=== PATIENT | male | born 1950 | race Caucasian/White ===

== ENCOUNTER 2019-08-07 19:43 | Inpatient (IN) | payer OTHER, BC ==
[~2019-08-07] VITALS: Ht 182.9 cm; Wt 95.3 kg
[~2019-08-07 19:43] MED LIST: ADVIL200 M3 PO; BENADRYL25 MG PO; BUPRENORPHINE HC8 MG SUBLING; FLOMAX0.4 MG PO; LIPITOR 10 MG10 M1 PO; LISINOPRIL20 MG PO; LORAZEPAM 0.50.5 MG PO; MULTIVITAMINS PO; NORVASC5 M1 PO; TERBINAFINE HC250 MG PO; TESTONE CI200 MG/1 M IM; VITAMIN D350 MC1 PO
[2019-08-09 11:13] LABS: HEMATOCRIT 51.8 % (42.0-52.0); HEMOGLOBIN 17.1 gm/dL (14.0-18.0); MCH 30.9 pg (26.0-34.0); MCHC 33.1 g/dL (28.0-37.0); MCV 93.6 fL (80.0-100.0); RBC 5.53 mil/uL (4.50-6.00); RDW 14.5 % (10.5-14.5); WBC 9.6 thou/uL (4.0-11.0)
[2019-08-09 11:17] LABS: PROTIME 10.7 Seconds (9.3-11.4)
[2019-08-09 11:19] LABS: ALBUMIN 4.3 g/dL (3.4-5.0); CALCIUM 9.6 mg/dL (8.5-10.1); CREATININE 1.1 mg/dL (0.7-1.3); POTASSIUM 4.1 mmol/L (3.5-5.1)
[2019-08-09 11:35] LABS: URINE BLOOD NEGATIVE (Negative); URINE CLARITY CLEAR; URINE COLOR YELLOW; URINE GLUCOSE-RANDOM* NEGATIVE (Negative); URINE KETONES TRACE (Negative); URINE LEUKOCYTES-REFLEX TRACE (Negative); URINE NITRITE-REFLEX NEGATIVE (Negative); URINE PROTEIN (DIPSTICK) NEGATIVE (Negative); URINE SPECIFIC GRAVITY >= 1.030 (1.005-1.035); URINE UROBILINOGEN 0.2 E.U./dl (0.2-1.0)
[2019-08-09 11:38] LABS: ICTOTEST (BILI CONFIRMATORY) Negative (Negative); URINE BILIRUBIN NEGATIVE (Negative)
[2019-08-09 12:19] LABS: CHOLESTEROL 94 mg/dL (<200); HDL CHOLESTEROL 32 mg/dL (>40); LDL CHOLESTEROL 48 mg/dL (<100); TC:HDL 2.9 Ratio (Not establshd); TRIGLYCERIDE 70 mg/dL (<150); TROPONIN-I 0.07 ng/mL (<0.06); VLDL 14 mg/dL (<40)
[2019-08-09] MEDS ORDERED: REVATIO20 MG PO (15:58)
[2019-08-09] MEDS ORDERED: ASA81BEC PO (15:59)
--- NOTE | 2019-08-09 16:05 | 2DMMODE ---
[facility] [place] [address] 2 D/M-MODE ECHOCARDIOGRAM Name: JABIER WEIR Room #: PRE IN ..#: [id number] Admission: Attend Phys: Senthil Sepulveda MD Discharge: Date of : 54 Report #: [id number] THIS REPORT FOR: cc: Tiffany Hook MD, Carnie MD Lundgren,Fran Feliciano MD [facility] ~ APPROVED REPORT Study performed: 08/09/2019 14:18:56 EXAM: Comprehensive 2D, Doppler, and color-flow Echocardiogram Patient Location: Pre-Op Status: routine BSA: 2.18 HR: 80 bpm Rhythm: NSR/PVCs Other Information Study Quality: Good Indications Chest pain, hypertension. Pre angiogram. Pre-Op knee replacement. Hx: HTN, HLP. 2D Dimensions RVDd: 28.38 mm IVSd: 10.86 (7-11mm) LVOT Diam: 22.06 (18-24mm) LVDd: 48.93 mm PWd: 10.23 (7-11mm) Ascending Ao: 34.05 (22-36mm) LVDs: 35.71 (25-40mm) Aortic Root: 33.10 mm Volumes Left Atrial Volume (Systole) Single Plane 4CH: 45.47 mL Single Plane 2CH: 51.81 mL LA ESV Index: 24.00 mL/m2 Aortic Valve AoV Peak Austin.: 1.73 m/s AO Peak Gr.: 11.96 mmHg LVOT Max P.19 mmHg LVOT Max V: 1.02 m/s [facility] [address] [place] [address] 2 D/M-MODE ECHOCARDIOGRAM Name: JABIER WEIR Room #: [facility] IN Ta#: [id number] Admission: Attend Phys: Senthil Sepulveda, Discharge: Date of : 54 Report #: [id number] STEVE Vmax: 2.26 cm2 Mitral Valve E/A Ratio: 0.7 MV Decel. Time: 211.96 ms MV E Max Austin.: 0.73 m/s MV A Austin.: 1.00 m/s MV PHT: 61.47 ms IVRT: 89.97 ms Pulmonary Valve PV Peak Austin.: 1.54 m/s PV Peak Gr.: 9.46 mmHg Pulmonary Vein P Vein S: 0.83 m/s P Vein A: 0.34 m/s P Vein D: 0.49 m/s P Vein A Dur.: 96.9 msec P Vein S/D Ratio: 1.69 Tricuspid Valve TR Peak Austin.: 2.70 m/s TR Peak Gr.: 29.01 mmHg Left Ventricle The left ventricle is normal size. There is normal LV segmental wall motion. Moderate basal septal hypertrophy is present. Left ventricular systolic function is normal. LVEF is 55-60%. Mild diastolic dysfunction is present (impaired relaxation pattern). Right Ventricle The right ventricle is normal size. The right ventricular systolic function is normal. Atria The left atrium size is normal. The right atrium size is normal. Aortic Valve The aortic valve is normal in structure. Mild aortic regurgitation. There is no aortic valvular stenosis. Mitral Valve The mitral valve is normal in structure. Trace mitral regurgitation. No evidence of mitral valve stenosis. Tricuspid Valve [facility] [address] [address] 2 D/M-MODE ECHOCARDIOGRAM Name: [facility] Room #: PRE IN M.Jean Claude.#: [id number] Admission: Attend Phys: Senthil Sepulveda, Discharge: Date of : 54 Report #: [id number] The tricuspid valve is normal in structure. Mild tricuspid regurgitation. Estiamted PAP is 35 mmHg Pulmonic Valve Pulmonic valve is not well visualized. There is no pulmonic valvular regurgitation. Great Vessels The aortic root is normal in size. The ascending aorta is normal in size. IVC is not well visualized. Pericardium There is no pericardial effusion. <Conclusion> Left ventricular systolic function is normal. There is normal LV segmental wall motion. LVEF is 55-60%. Mild diastolic dysfunction The aortic valve is normal in structure. Mild aortic regurgitation, no stenosis. The mitral valve is normal in structure. Trace mitral regurgitation. Mild tricuspid regurgitation. Estiamted pulmonary artery pressure of 35 mmHg There is no pericardial effusion. <ELECTRONICALLY SIGNED> By: Fran Sanchez MD, [facility] 08/09/191602 02 02 Fran Sanchez MD, FAC /INF
--- NOTE | 2019-08-12 07:51 | EKG ---
[facility] [place] [address] ELECTROCARDIOGRAM REPORT Name: WEIRJABIER Room #: PRE IN .R.#: [id number] Admission: Attend Phys: Senthil Sepulveda MD Discharge: Date of : 54 Report #: [id number] THIS REPORT FOR: cc: Tiffany Hook MD, Carnie MD Lundgren,Fran Feliciano MD [facility] ~ THIS REPORT FOR: //name// [facility] Test Date: 2019-08-09 Test Time: 10:59:37 Pat Name: JABIER WEIR Department: Room: Gender: Extrusion Technician: SANJEEV DELGADO : 1950 Requested By: Senthil Sepulveda Order Number: [id number] MD: Fran Sanchez Measurements Intervals [place] Rate: 100 P: 10 NH: 171 QRS: 9 QRSD: 82 T: 138 QT: 298 QTc: 385 Interpretive Statements Sinus tachycardia T wave abnormality No previous ECG available for comparison Electronically Signed On 08-12-2019 7:49:46 CDT by Fran Sanchez [email or web address] <ELECTRONICALLY SIGNED> By: Fran Sanchez MD, [facility] 08/12/19 0749 1059 1059 Fran Sanchez MD, FACC /EPI
[2019-08-26] VITALS (7 sets, daily range): BP systolic 114–136; BP diastolic 67–89
--- NOTE | 2019-08-26 17:19 | NUR ---
PATIENT ADMITTED FROM OR, RIGHT TOTAL KNEE REPLACEMENT. ARRIVED ON THE UNIT AT 1400. PATIENT HAS RIGHT KNEE SEB DRESSING, REI JOHNE, SCD'S, POLAR PACK IN PLACE. PATIENT HAS BRUISING TO RIGHT INNER THIGH FROM HEART CATH. PATIENT HAS LEFT FOREARM IV IN PLACE, BRUISED AT SITE AND HURTS WHEN FLUSHED, FENTANYL 50 MCG IV GIVEN, IV FLUIDS STOPPED UNTIL NEW IV STARTED. ADMISSION DONE, EXCEPT PLAN OF CARE. REPORT GIVEN TO MARS/RN.
--- NOTE | 2019-08-26 19:31 | NUR ---
PT CARE ASSUMED FROM THE OR AT 1330. A&Ox4. PT HAD FEMORAL BLOCK AND IS ON BEDREST UNTIL PT IN THE MORNING. USES THE URINAL. NEW IV PLACED. PT TAKES A MEDICATION THAT BLOCKS THE RECEPTORS FOR HIM TO FEEL PAIN MEDICATION TO WORK. REI TORRES/ SCD'S/POLAR PACK IN PLACE. VITALS STABLE. BRUISING ON THE INSIDE OF THE R.THIGH FROM A PREVIOUS CARDIAC CATH 1 WEEK PRIOR. FALL PROTOCOL IN PLACE. CALL LIGHT IN REACH.
[2019-08-27 00:10] VITALS: BP 132/85
--- NOTE | 2019-08-27 03:18 | NUR ---
ASSESSED AT START OF SHIFT PT RESTING IN BED. A&OX4 C/O PAIN IN RIGHT KNEE MANAGED BY ORAL AND IV PAIN MED SEE EMAR. IV INTACT AND FLUIDS INFUISING. URINAL BY BEDSIDE. SCD'S, POLAR PACK AND SEB DRESSING IN PLACE. FALL PREQ IN CALL LIGHT IN REACH. WILL CONT WITH POC TILL EOS.
[2019-08-27 03:30] VITALS: BP 121/66
[2019-08-27 06:25] LABS: HEMATOCRIT 39.9 % (42.0-52.0); HEMOGLOBIN 13.3 gm/dL (14.0-18.0); MCHC 33.3 g/dL (28.0-37.0); MCV 93.1 fL (80.0-100.0); RBC 4.28 mil/uL (4.50-6.00); RDW 13.9 % (10.5-14.5)
[2019-08-27 07:10] VITALS: BP 118/67
--- NOTE | 2019-08-27 12:33 | NUR ---
ASSESSMENT: CM REVIEWED CHART AND SPOKE WITH PATIENT. PT IS S/P RIGHT KNEE. PT REPORTS HE LIVES IN A HOUSE WITH HIS . PT REPORTS HAVING ABOUT 6 STEPS WITH HANDRAILS TO ENTER AND ANOTHER 5 STEPS WITH HANDRAILS TO THE OTHER LEVEL. PT REPORTS HE HAS A WALKER AT HOME FOR AMBULATION. PT REPORTS HAVING MULTIPLE GRAB BARS IN THE SHOWER WELL A SHOWER CHAIR. PT STATES HE HAS OUTPATIENT THERAPY ARRANGED AT [facility] [address] FOR THIS MONDAY. CM DISCUSSED ROLE. PT DOES NOT ANTICIPATE HAVING ANY NEEDS AT DISCHARGE. PT IS STILL HAVING SOME PAIN SO PLAN IS LIKELY DISCHARGE HOME TOMORROW. CM WILL CONTINUE TO FOLLOW.
[2019-08-27 15:48] VITALS: BP 134/68
--- NOTE | 2019-08-27 18:03 | NUR ---
PT CARE ASSUMED AT 0700. A&Ox4. PT UP WITH PT WALKING AND HAS PENDING DISCHARGE ORDERS PER PT CLEARANCE. SCD'S, POLARPACK, REI HOSES IN PLACE. EDUCATION GIVEN ON POLARPACK AND SEB DRESSING. PT USES URINAL AND IS. PT STILL REQUIRES IV PAIN MEDICATION AND PO PAIN MEDICATION. IV INFILTRATED AND WILL RECEIVE NEW IV. PT WEARS HEARING AIDS. IV SALINE LOCKED. FALL PROTOCOL IN PLACE. CALL LIGHT IN REACH. WILL CONTINUE TO MONITOR.
[2019-08-27 19:05] VITALS: BP 127/69
--- NOTE | 2019-08-28 01:30 | NUR ---
ASSUMED CARE @1900 PT A&OX4. IV INTACT IN RT AC. C/O PAIN 11/03 MANAGED WITH PO AND IV PAIN MEDS SEE EMAR. UP WITH ASSIST WITH A WALKER. POLAR PACK, SEB DRESSING AND SCD'S IN PLACE. REDNESS NOTED ON RIGHT THIGH FROM PRIOR ANGIO PROCEDURE. FALL PREC IN PLACE AND CALL LIGHT IN REACH WILL CONT TO MONITOR.
[2019-08-28 04:10] VITALS: BP 121/85
[2019-08-28 05:39] LABS: HEMATOCRIT 40.4 % (42.0-52.0); HEMOGLOBIN 13.7 gm/dL (14.0-18.0); MCH 31.6 pg (26.0-34.0); MCV 93.1 fL (80.0-100.0); RBC 4.34 mil/uL (4.50-6.00); RDW 14.4 % (10.5-14.5); WBC 10.6 thou/uL (4.0-11.0)
[2019-08-28] MEDS ORDERED: ACYCLOVIR 400400 MG PO (06:11)
[2019-08-28 07:55] VITALS: BP 124/75
[2019-08-28 15:15] VITALS: BP 126/85
--- NOTE | 2019-08-28 16:51 | O ---
[facility] [place] [address] OPERATIVE REPORT Name: JABIER WEIR Room #: 439-P ADM IN M.R.#: [id number] Admission: 08/27/19 Attend Phys: Senthil Sepulveda MD Discharge: Date of : 54 Report #: [id number] THIS REPORT FOR: cc: Tiffany Hook MD,Tiffany Sepulveda,Senthil Ronquillo MD ~ CC: Tiffany Sepulveda DATE OF SERVICE: 08/26/2019 PREOPERATIVE DIAGNOSIS: Right knee osteoarthritis. POSTOPERATIVE DIAGNOSIS: Right knee osteoarthritis. PROCEDURE: Right total knee arthroplasty using Navio robotic assistance. SURGEON: Senthil Sepulveda MD RENAL DIALYSIS RN: Rachel Duarte PA-C. INDICATIONS FOR RENAL DIALYSIS RN: Throughout the case, extensive retraction and manipulation of the knee was required. This was afforded to me by my ex assistant/program director. ANESTHESIA: LMA with an adductor canal block. IMPLANTS: Hill and Nephew size 6 Journey II cobalt chrome femur, size 6 tibia, size 9 constrained polyethylene and size 38 patella. TOURNIQUET TIME: 61 minutes. ESTIMATED BLOOD LOSS: 25 mL. COMPLICATIONS: None. SPECIMENS: None. CONDITION UPON LEAVING THE OPERATING ROOM: Stable. INDICATIONS FOR PROCEDURE: The patient is a 68-year-old gentleman with right knee osteoarthritis. He had failed conservative measures for this and after discussion with him, he elected for right total knee arthroplasty. DESCRIPTION OF PROCEDURE: Risks, benefits, alternatives, complications were discussed in detail with the patient including but not limited to risk of anesthesia, risk of damage to nerves, arteries, blood vessels, risk for [facility] [address] [place] [address] OPERATIVE REPORT Name: JABIER WEIR Room #: 439-P ADM IN M.R.#: [id number] Admission: 08/27/19 Attend Phys: Senthil Sepulveda MD Discharge: Date of : 54 Report #: [id number] infection, bleeding, risk for continued knee pain, need for reoperation. Informed consent was obtained from the patient. Right knee was appropriately marked in the preoperative holding area. IV Ancef was given for preoperative antibiotics. He was brought to the operating room and placed in supine position on operating room table. LMA anesthesia was induced without complication. Tourniquet was placed on the right thigh. Right lower extremity was prepped and draped in normal sterile fashion. Timeout was performed properly identifying the patient and procedure as well as the instrumentation. All in the operating room were in agreement. Right lower extremity was exsanguinated, tourniquet was inflated. Tourniquet time was 61 minutes. Standard midline approach to the knee was made with 10 blade through the skin. Dissection was taken down sharply to the fascia and deep flaps were developed medially and laterally. Fresh-10 blade was used to make a medial parapatellar arthrotomy and the knee was inspected. There was severe tricompartmental osteoarthritis. ACL and PCL were removed sharply. Reference pins were placed in the femur and the tibia and the knee was digitally mapped using the [employer] robotic system. Intraoperative plan was made and we sized the size 6 femur, size 6 tibia and a size 10 spacer. After acceptance of the intraoperative plan, the distal femoral cut was made with a Navio bur. Distal femoral cuts were made. Attention was then turned to the tibia. Remainder of the menisci removed with Bovie cautery. Tibial resection guide was pinned in place using the Navio for placement and tibial resection was made. Flexion and extension gaps were then checked and found to have good balance in flexion and extension with a 9 spacer. Tibia was sized, found to be a size 6. A size 6 tibial trial was placed, pinned and punched. A size 6 femoral trial was placed and box cut was made then trialed with a size 9 polyethylene. Knee was taken through range of motion, found to have good balance laterally throughout range of motion, but somewhat lax medially. This was not surprising given his preoperative valgus deformity. It was decided we will use a constrained implant for the final polyethylene, 9 mm was resected from the posterior surface of the patella and a size 38 patellar trial button was placed. Knee was taken through range of motion, found to be stable, found to have good patellar tracking. After this, trial components were removed. Bony ends were thoroughly irrigated with normal saline. Final size 6 tibia, size 6 cobalt chrome Journey II BCS femur and a size 38 patella were cemented in place using standard cementation techniques. While the cement cured, a periarticular injection consisting of morphine, ropivacaine, epinephrine and Toradol was placed around the knee joint capsule. After the cement cured, tourniquet was deflated. Hemostasis was obtained with Bovie cautery. Final size 9 constrained polyethylene was placed. A gram of vancomycin was placed deep in the joint. Fascia was closed with 0 Vicryl, skin was closed with 2-0 Vicryl. Skin staple and a SEB dressing was applied. The patient tolerated [facility] [address] [place] [address] OPERATIVE REPORT Name: JABIER WEIR Room #: 439-P [facility] IN M.R.#: [id number] Admission: 08/27/19 Attend Phys: Senthil Sepulveda MD Discharge: Date of : 54 Report #: [id number] this procedure well and went to recovery room under care of anesthesia postoperatively. <ELECTRONICALLY SIGNED> By: Senthil Sepulveda MD 08/28/19 1651 1451 1548 Senthil Sepulveda MD /nt
--- NOTE | 2019-08-28 19:27 | NUR ---
PT SPOKE WITH AND FAMILY ON PHONE STATED THIS NURSE DID NOT NEED TO UPDATE
[2019-08-28 20:05] VITALS: BP 141/66
[2019-08-29 04:50] VITALS: BP 139/77
--- NOTE | 2019-08-29 05:36 | NUR ---
RECIEVED CARE OF THIS PATIENT AT 1900. C/O PAIN, MED GIVEN SEVERAL TIMES. DRESSING ON R KNEE D/I. HAS POLAR ICE ON IT. HAS REI'S AND SCD'S ON. PATIENT ALERT AND ORIENTED X4. SLEPT OFF AND ON DURING NIGHT.
[2019-08-29 06:07] LABS: HEMOGLOBIN 14.1 gm/dL (14.0-18.0); MCHC 32.9 g/dL (28.0-37.0); MCV 94.3 fL (80.0-100.0); RBC 4.56 mil/uL (4.50-6.00); RDW 14.4 % (10.5-14.5); WBC 11.5 thou/uL (4.0-11.0)
[2019-08-29 07:50] VITALS: BP 132/80
--- NOTE | 2019-08-29 15:41 | NUR ---
ON-GOING ASSESSMENT: CM REVIEWED CHART AND SPOKE WITH PT. CM RECEIVED CONSULT FOR SNF FOR PT. CM DISCUSSED WITH PATIENT AND PROVIDED HIM WITH A SNF LIST. PT WANTED A REFERRAL SENT TO [facility]. CM SPOKE WITH LIASON WHO STATES THEY ARE FULL UNTIL MONDAY. PT THEN WANTED A REFERRAL SENT TO [facility]. CM FAXED REFERRAL AND NOTIFIED [facility]. CM WAITING TO HEAR BACK FROM [place].
--- NOTE | 2019-08-29 16:27 | NUR ---
ASSESSMENT: CM REVIEWED CHART AND ATTEMPTED TO CONTACT PT BUT NO ANSWER AT THIS TIME. CM ATTEMPTED TO REACH PATIENTS BROTHER IMMANUEL/HERACLIO BUT NO ANSWER. PER CHART PT IS FROM [facility]. PT HAS HX OF OF DIALYSIS AND CM WILL VERIFY IF PT STILL GOES TO [facility] BUT THEY ARE CURRENTLY CLOSED WHEN CM ATTEMPTED TO VERIFY. PT WAS ADMITTED WITH [facility]. CM WILL CONTINUE TO FOLLOW TO ASSIST NEEDED.
[2019-08-29 17:30] VITALS: BP 120/77
[2019-08-29 19:27] VITALS: BP 112/80
--- NOTE | 2019-08-30 02:19 | NUR ---
ASSUMED PT CARE AT APPROXIMATELY 1900. PT IS ALERT AND ORIENTED X 4. DRESSING TO RIGHT KNEE IS DRY, INTACT, AND DISPLAYING NO DRAINAGE. POLAR PACK IS CONNECTED AND REFILLED. PT HAS C/O PAIN. PRN HYDROMORPHONE, AND OXYCODONE GIVEN. PT IS CURRENTLY SLEEPING. FALL PRECAUTIONS IN PLACE, CALL LIGHT WITHIN REACH.
[2019-08-30 04:37] VITALS: BP 127/75
[2019-08-30 07:37] VITALS: BP 122/76
[2019-08-30] MEDS ORDERED: ASPIR 8181 MG PO (11:14)
[2019-08-30] MEDS ORDERED: DILAUDID 4 MG TA4 M1 PO (11:14)
[2019-08-30] MEDS ORDERED: MS CONTIN 30 MG30 M1 PO (11:15)
[2019-08-30] MEDS ORDERED: PERCOCET 10-321 EACH PO (11:15)
[2019-08-30] MEDS ORDERED: NEURONTIN 300M300 M2 PO (11:16)
[2019-08-30] MEDS ORDERED: CELEBREX 200 M200 M1 PO (11:17)
[2019-08-30 15:25] VITALS: BP 125/75
--- NOTE | 2019-08-30 16:10 | NUR ---
PT DISCHARGING TO [facility] FAXED DC ORDERS/SUMMARY TO FACILITY SPOKE WITH NATE IN ADM SHE RECEIVED ORDERS AND RESULTS OF COVID TEST AND ARRANGED TRANSPORT BY [facility] FOR 1730 TODAY. NOTIFIED PT'S (DOMINGUEZ) OF DC AND TIME OF TRANSPORT. UNIT NOTIFIED AND CHART COPY PER US. RN TO CALL REPORT TO [phone].
--- NOTE | 2019-08-30 16:15 | NUR ---
ON-GOING ASSESSMENT: [facility] HAS ACCEPTED PT, CM NOTIFIED PT. NEGATIVE COVID TEST HAS BEEN SENT TO [facility]. INDUSTRIAL STAFF NURSE IS ARRANGING TRANSPORTATION AND FAXING ORDERS. PT REPORTS NO FURTHER NEEDS FROM CM. CHART COPY WAS ORDERED.
--- NOTE | 2019-08-30 17:37 | NUR ---
ASSEMED PATIENT CARE AT 0700. PT ALERT X ORIENTED X 4, ON ROOM AIR, REGULAR DIET. STRUGGLED WITH PAIN OF 8-10, PAIN CONTROLLED BY PAIN MEDS. PICCO DRESSING IN PLACE, TEDS AND SCD'S IN PLACE. PT UP WITH ASSIST WITH WALKER AND GAIT BELT. HAD A BM TODAY. CALL LIGHT WITHIN REACH, FALL PRECAUTION IN PLACE. PT DISCHARGED TO [facility]. REPORT GIVEN TO SANJEEV LANE. PATIENT SAID, HE HAD COMMUNICATED EVERYTHING WITH HIS FAMILY.
== END 2019-08-30 16:54 | DRG 470 ==
LOC: PRE 19:43 → TBA 08-26 09:17 → 4S 08-26 09:17 → PRE 08-26 10:29 → 4S 08-26 14:48
PROVIDERS: Internal Medicine Cardiovascular Disease; ADMIT Orthopaedic Surgery; ATTEND Orthopaedic Surgery
PROC: 8E0Y0CZ Robotic Assisted Procedure of Lower Extremity, Open Approach (ICD-10-PCS; principal; 2019-08-26)
PROC: 0SRC0J9 Replacement of Right Knee Joint with Synthetic Substitute, Cemented, Open Approach (ICD-10-PCS; principal; 2019-08-26)
DX: M17.11 Unilateral primary osteoarthritis, right knee (principal); Z03.818 Encounter for observation for suspected exposure to other biological agents ruled out; I10 Essential (primary) hypertension; E78.5 Hyperlipidemia, unspecified; F41.9 Anxiety disorder, unspecified; E78.00 Pure hypercholesterolemia, unspecified; N40.0 Benign prostatic hyperplasia without lower urinary tract symptoms; Z79.82 Long term (current) use of aspirin; Z79.899 Other long term (current) drug therapy; Z90.89 Acquired absence of other organs; M21.061 Valgus deformity, not elsewhere classified, right knee
CPT/HCPCS: 10102; 50010; 50101; 50415; 50954; 51130; 51225; 51320; 51412; 52001; 52282; 53000; 53078; 54118; 56527; 56528; 57095; 57103; 57110; 57127; 57180; 57952; 62110; 62900; 64043; 65060; 70005

== ENCOUNTER 2019-08-09 15:29 | Outpatient (CLI) | payer OTHER, BC ==
[~2019-08-09] VITALS: Ht 182.9 cm; Wt 95.3 kg
[2019-08-09] VITALS (9 sets, daily range): BP systolic 114–137; BP diastolic 76–94
--- NOTE | ~2019-08-09 | D ---
[facility] [place] [address] DISCHARGE SUMMARY Name: JABIER WEIR Room #: [facility]..#: [id number] Admission: 08/09/19 Attend Phys: Alek Crabtree MD, Discharge: Date of : 54 Report #: [id number] THIS REPORT FOR: cc: Tiffany Hook MD,Alek Olsen MD, MD [facility] ~ THIS REPORT FOR: //name// CC: Tiffany Sepulveda MD DATE OF SERVICE: 08/09/2019 HOSPITAL SUMMARY: The patient is a 68-year-old male who I had seen in the preoperative area with chest pain and abnormal EKG. Subsequently, ruled out with a COVID test negative for COVID, but having some chest pressure, heaviness for this week predominantly, a decrease in exercise tolerance and needing knee surgery. He had a very equivocal troponin, 0.07. We proceed to the catheterization lab. The echo Doppler was normal. See that report. The angiogram had only mild 3-vessel coronary artery disease in a right dominant system. Left main was moderate in size with mild irregularities, mild plaquing in the distal LAD. There is no occlusive disease. It is a right dominant system. LV function is preserved. He has a mildly dilated generalized ascending and transverse aorta. Although this is a large man and so probably not significantly enlarged for his size. We will evaluate this noninvasively at a later date with a CT scan. There is trivial aortic insufficiency and a supravalvular aortogram. The catheterization report will also be completed. LV function is preserved. We will have followup discharge protocol tonight after 3-4 hours bed rest and fluids. No lifting for 48 hours. No lying in tub, Jacuzzi or roman for a week. Okay to proceed with knee surgery as scheduled. I will follow up with the patient in 6 months. Follow up with Dr. Hook as scheduled. DISCHARGE DIAGNOSES: 1. Chest pain with mild CAD. 2. Abnormal EKG (nonspecific). 3. Hypertension. 4. Hypercholesterolemia. 5. Degenerative joint disease. [facility] [address] [place] [address] DISCHARGE SUMMARY Name: JABIER WEIR Room #: [facility].#: [id number] Admission: 08/09/19 Attend Phys: Alek Crabtree MD, Discharge: Date of : 54 Report #: [id number] Thank you for asking me to assist in the care of this patient. By: [id number] Alek Crabtree MD, FACC /nt
[2019-08-09] MEDS ORDERED: REVATIO20 MG PO (15:58)
[2019-08-09] MEDS ORDERED: ASA81BEC PO (15:59)
--- NOTE | 2019-08-11 10:37 | CATHLAB ---
[facility] [place] [address] INVASIVE PROCEDURE REPORT Name: JABIER WEIR Room #: DEP LAUREL Bernardo#: [id number] Admission: 08/09/19 Attend Phys: Alek Crabtree MD, Discharge: 08/09/19 Date of : 54 Report #: [id number] THIS REPORT FOR: cc: Tiffany Hook MD, Carnie MD Mancuso, Gerald M. MD [facility] ~ APPROVED REPORT Study performed: 08/09/2019 15:46:45 Patient Details Patient Status: Out-Patient Room #: The patient is a 68 year-old male Event Personnel Alek Crabtree Lead Investigator, Ham Thompson RN, Jose, Ellen Monitor, Nikia Alejo Scrub Procedures Performed Art Access - R femoral artery* 67949 Initial Mod Sed Same Phys/QHP Gr5y 407527 55776 Mod Sed Same Phys/QHP Ea 679754 Left Heart Cath w/or w/o Coronaries [id number] [facility] Supravalvular Aortography Injection 4947766 ISVA Aortogram Abdominal Peripheral Angio 176360 Hemostasis w/ Mynx Indication Chest pain Procedure Narrative The patient was brought electively to the Cardiac Catheterization Laboratory and was prepped and draped in a sterile manner. The Right Groin^ was infiltrated with 1% Lidocaine subcutaneous anesthesia. A PINNACLE 6FR Sheath #[id number] sheath was inserted into the RFA^. Coronary angiography was performed using coronary diagnostic catheters. The right coronary system was accessed and visualized with a JR 4 catheter. The left coronary system was accessed and visualized with a JL 5 catheter. The left ventricle was accessed and visualized with a Pigtail catheter. Left ventriculogram was performed in VALENZUELA projection. An aortogram of the abdominal aorta was performed. Closure device was deployed with a 6 Fr Mynx. The patient tolerated the procedure well and there were no complications associated with the procedure. There was no hematoma. Intraoperative Conscious Sedation [facility] [address] [place] [address] INVASIVE PROCEDURE REPORT Name: JABIER WEIR Room #: [facility] AMOR Bernardo#: [id number] Admission: 08/09/19 Attend Phys: Alek Crabtree, Discharge: 08/09/19 Date of : 54 Report #: [id number] Sedation start time: 16:30 Case end Time: 17:10 Fentanyl 100.0 mcg Versed 2.0 mg Fluoro Time: 7.10 minutes Dose: DAP 6842.00 cGycm2 735 mGy Contrast Type and Amount: Omnipaque 150 ml Hemodynamics The aortic pressure is 120/64 mmHg with a mean of 81 mmHg. The left ventricular pressure is 136/8 mmHg with a mean of mmHg. The left ventricular end diastolic pressure is 14 mmHg. Conclusion 1. Left main with mild disease giving rise to LAD and circumflex. #2 LAD extends around the apex with minimal plaquing. No occlusive disease. #3 circumflex OM moderate distribution minimal plaquing also noted this is nondominant vessel. #4 dominant right coronary artery widely patent giving rise to PDA and DORCAS. #5 normal left jugular size and systolic function EF 60% #6 supravalvular aortogram revealing a borderline dilated ascending aorta no significant aortic insufficiency. Recommendations and plan: Continue aggressive risk factor modification no indication for coronary intervention. Okay to proceed with knee surgery next week. Patient chest pain and abnormal EKG are not due to coronary artery stenosis. <ELECTRONICALLY SIGNED> By: Alek Crabtree MD, FACC 08/11/19 1035 1035 1035 Alek Crabtree MD, FACC /INF
== END 2019-08-09 20:55 | disposition home or self-care (01) ==
LOC: CATH 15:29 → 2N 17:44 → CATH 20:55
DX: R07.9 Chest pain, unspecified (principal); I25.10 Atherosclerotic heart disease of native coronary artery without angina pectoris; I10 Essential (primary) hypertension; E78.00 Pure hypercholesterolemia, unspecified; F41.9 Anxiety disorder, unspecified; N40.0 Benign prostatic hyperplasia without lower urinary tract symptoms; Z98.890 Other specified postprocedural states; Z79.899 Other long term (current) drug therapy; Z79.82 Long term (current) use of aspirin
CPT/HCPCS: 10081